=== PATIENT | male | born 1975 | race Two or more races ===

== ENCOUNTER 2017-08-20 10:53 | Inpatient (IN) | payer MEDICAID, OTHER ==
[~2017-08-20] VITALS: Ht 154.9 cm; Wt 97.0 kg
[2017-08-20 11:27] LABS: Basophils # (auto) 0 uL; Basophils % (auto) 0.5 % (0.0-2.0); Eosinophils # (auto) 0.2 uL; Eosinophils % (auto) 2.1 % (0.0-7.0); Hematocrit 37.5 % (41.0-53.0); Hemoglobin 12.9 g/dL (13.5-17.5); Lymphocytes # (auto) 1.1 uL; Lymphocytes % (auto) 10.1 % (10.0-50.0); Mean Corpuscular Hemoglobin 28.5 pg (28.0-32.0); Mean Corpuscular Hgb Conc. 34.4 g/dL (32.0-36.0); Mean Corpuscular Volume 82.8 fL (80.0-100.0); Monocytes # (auto) 0.5 uL; Monocytes % (auto) 4.9 % (0.0-12.0); Neutrophils # (auto) 8.9 uL; Neutrophils % (auto) 82.4 % (37.0-80.0); Nucleated Red Blood Cells % 0.1 %; Platelet Count (auto) 140 10^3/uL (140-450); Red Blood Cells 4.54 10^6/uL (4.5-5.90); Red Cell Distribution Width 17.9 % (11.8-14.3); White Blood Cell 10.8 10^3/uL (4.4-10.8)
[2017-08-20 11:53] LABS: Albumin 3.6 g/dL (3.4-5.0); BUN/Creatinine Ratio 17.1; Bilirubin, Total 1.7 mg/dL (0.2-1.0); Calcium 8.8 mg/dL (8.5-10.1); Magnesium 1.8 mg/dL (1.6-2.6); Potassium 3.5 mmol/L (3.5-5.1); Total Protein 7.4 g/dL (6.4-8.2)
[2017-08-20] MEDS ORDERED: ASPirin 81 mg TAB PO ONE (13:15)
[2017-08-20] MEDS ORDERED: NITROGLYCERIN 0.4 MG SL TAB SL ONE (13:15)
[2017-08-20] MEDS ORDERED: ENOXAPARIN SOD 100 MG/1 ML SYRINGE SC ONE ×2 (13:15→20:32)
[2017-08-20] MEDS ORDERED: NITROGLYCERIN 0.4 MG SL TAB SL PRN (13:45)
[2017-08-20] MEDS ORDERED: MORPHINE SULFATE 8mg/ml INJ SDV IV PRN ×3 (13:45)
[2017-08-20] MEDS ORDERED: DEXTROSE (50%) 50ML SYRG IV PRN (13:45)
[2017-08-20] MEDS ORDERED: LACTULOSE 20Gm/30ML SOLN PO PRN (13:45)
[2017-08-20 14:05] LABS: CRP High Sensitivity 0.29 mg/dL (< 0.3)
[2017-08-20] MEDS: SODIUM CHLORIDE 0.9% 1,000 ML IV SCH (14:09)
[2017-08-20 14:12] LABS: INR 1.05 (0.9-1.15); Partial Thromboplastin Time 25.1 sec (22.64-33.71); Prothrombin Time 11.5 sec (9.37-12.3)
[2017-08-20] MEDS: ACCU-CHEK COMFORT CURVE STRIP VI SCH ×2 (17:24→21:48)
[2017-08-20] MEDS: InsuLIN REG 1unit/0.01ml Soln (100units/ml) SC SCH ×2 (17:31→21:49)
[2017-08-20] MEDS: BUMETANIDE 1 MG TAB PO SCH (17:31)
[2017-08-20 17:40] VITALS: BP 114/73
[2017-08-20 20:00] VITALS: BP 93/65
[2017-08-20] MEDS: ENOXAPARIN SOD 80 MG/0.8ML SYRINGE SC SCH (21:47)
[2017-08-21] VITALS: BP 118/61
[2017-08-21] MEDS ORDERED: FAM20T PO (00:36)
[2017-08-21] MEDS ORDERED: COLCPOW2 PO (00:36)
[2017-08-21] MEDS ORDERED: IVAB1.7T PO (00:36)
[2017-08-21] MEDS ORDERED: SPIR25TA89 PO (00:36)
[2017-08-21] MEDS ORDERED: MET50T PO (00:36)
[2017-08-21] MEDS ORDERED: CLOP75TA41 PO (00:36)
[2017-08-21] MEDS ORDERED: ATOR1TAB PO (00:36)
[2017-08-21] MEDS ORDERED: ASPI81CH4 PO (00:36)
[2017-08-21] MEDS ORDERED: BUME1TAB26 PO (00:36)
[2017-08-21] MEDS ORDERED: METF-370 PO (00:36)
[2017-08-21] MEDS ORDERED: SACU1TAB PO (00:44)
[2017-08-21 04:00] VITALS: BP 119/72
[2017-08-21] MEDS: SODIUM CHLORIDE 0.9% 1,000 ML IV SCH (06:00)
[2017-08-21] MEDS ORDERED: BUMETANIDE 1 MG TAB ONE (06:02)
[2017-08-21] MEDS: BUMETANIDE 1 MG TAB PO SCH (06:08)
[2017-08-21] MEDS: ACCU-CHEK COMFORT CURVE STRIP VI SCH ×4 (06:09→21:50)
[2017-08-21] MEDS: InsuLIN REG 1unit/0.01ml Soln (100units/ml) SC SCH ×3 (06:22→17:00)
[2017-08-21 08:00] VITALS: BP 131/84
[2017-08-21] MEDS ORDERED: NITROGLYCERIN 0.2MG/HR TOPICAL PATCH TD SCH (10:00)
[2017-08-21] MEDS ORDERED: CLOPIDOGREL BISULFATE 75 MG TAB PO SCH (10:00)
[2017-08-21] MEDS: ENOXAPARIN SOD 80 MG/0.8ML SYRINGE SC SCH ×2 (10:14→21:48)
[2017-08-21] MEDS: COLCHICINE 0.6 MG TAB PO SCH (10:14)
[2017-08-21] MEDS: SPIRONOLACTONE 25 MG TAB PO SCH (10:15)
[2017-08-21] MEDS: ASPirin 81 mg TAB PO SCH (10:15)
[2017-08-21 11:10] LABS: Basophils # (auto) 0.1 uL; Basophils % (auto) 0.5 % (0.0-2.0); Eosinophils # (auto) 0.2 uL; Eosinophils % (auto) 2.2 % (0.0-7.0); Hematocrit 34.6 % (41.0-53.0); Hemoglobin 11.8 g/dL (13.5-17.5); Lymphocytes # (auto) 1.3 uL; Mean Corpuscular Hemoglobin 28.3 pg (28.0-32.0); Mean Corpuscular Volume 83.3 fL (80.0-100.0); Monocytes # (auto) 0.7 uL; Neutrophils # (auto) 9.3 uL; Neutrophils % (auto) 80.3 % (37.0-80.0); Platelet Count (auto) 132 10^3/uL (140-450); Red Blood Cells 4.16 10^6/uL (4.5-5.90); Red Cell Distribution Width 17.6 % (11.8-14.3); White Blood Cell 11.6 10^3/uL (4.4-10.8)
[2017-08-21 11:50] VITALS: BP 113/71
[2017-08-21 12:13] LABS: BUN/Creatinine Ratio 16.2
[2017-08-21 12:14] LABS: Albumin 3.4 g/dL (3.4-5.0); Bilirubin, Total 2.1 mg/dL (0.2-1.0); Calcium 8.4 mg/dL (8.5-10.1); Total Protein 7.1 g/dL (6.4-8.2)
[2017-08-21] MEDS ORDERED: POTASSIUM CHL 20 Meq TABLET PO ONE (14:45)
[2017-08-21] MEDS ORDERED: CARVEDILOL 3.125 MG TAB PO ONE (14:45)
[2017-08-21] MEDS ORDERED: ACETAMINOPHEN 325 MG TAB PO ONE (14:57)
[2017-08-21 15:49] VITALS: BP 119/54
[2017-08-21 19:55] VITALS: BP 109/52
[2017-08-21] MEDS: ATORVASTATIN 20 MG TAB PO SCH (21:49)
[2017-08-21] MEDS: CARVEDILOL 3.125 MG TAB PO SCH (21:50)
[2017-08-22 00:28] VITALS: BP 112/69
[2017-08-22] MEDS: InsuLIN REG 1unit/0.01ml Soln (100units/ml) SC SCH ×5 (00:30→21:26)
[2017-08-22 02:44] LABS: Urine Bacteria NONE SEEN /hpf (None Seen); Urine Blood Negative /uL (Negative); Urine Specific Gravity 1.019 (1.001-1.035); Urine WBC 1 /hpf (0 - 3)
[2017-08-22 03:01] LABS: Alcohol, Urine < 3.0 mg/dL (0-5); Amphetamine Screen, Urine NEGATIVE (NEGATIVE); Barbiturate Scree,Urine NEGATIVE (NEGATIVE); Benzodiazephine Screen, Urine NEGATIVE (NEGATIVE); Cannabinoid Screen, Urine NEGATIVE (NEGATIVE); Cocaine Screen, Urine NEGATIVE (NEGATIVE); Opiate Scree,Urine NEGATIVE (NEGATIVE); Phencyclidine Screen, Urine NEGATIVE (NEGATIVE)
[2017-08-22] MEDS: ACCU-CHEK COMFORT CURVE STRIP VI SCH ×4 (05:37→21:22)
[2017-08-22 06:09] LABS: Basophils # (auto) 0 uL; Basophils % (auto) 0.3 % (0.0-2.0); Eosinophils # (auto) 0.2 uL; Hematocrit 31.1 % (41.0-53.0); Hemoglobin 10.8 g/dL (13.5-17.5); Lymphocytes # (auto) 1.6 uL; Lymphocytes % (auto) 16.3 % (10.0-50.0); Mean Corpuscular Hemoglobin 29.3 pg (28.0-32.0); Mean Corpuscular Hgb Conc. 34.8 g/dL (32.0-36.0); Mean Corpuscular Volume 84.2 fL (80.0-100.0); Monocytes # (auto) 0.9 uL; Monocytes % (auto) 9.1 % (0.0-12.0); Neutrophils % (auto) 72.3 % (37.0-80.0); Platelet Count (auto) 128 10^3/uL (140-450); Red Blood Cells 3.69 10^6/uL (4.5-5.90); Red Cell Distribution Width 17.6 % (11.8-14.3); White Blood Cell 9.7 10^3/uL (4.4-10.8)
[2017-08-22 06:20] LABS: Albumin 3.1 g/dL (3.4-5.0); BUN/Creatinine Ratio 16.8; Bilirubin, Total 1.9 mg/dL (0.2-1.0); Calcium 8.8 mg/dL (8.5-10.1); Potassium 3.8 mmol/L (3.5-5.1); Total Protein 6.6 g/dL (6.4-8.2)
[2017-08-22 08:00] VITALS: BP_SYST 114; BP_SYST 138; BP_DIAS 60; BP_DIAS 80
[2017-08-22] MEDS: ACETAMINOPHEN 650 mg PER 20 mL UD PO PRN (08:07)
[2017-08-22] MEDS ORDERED: POTASSIUM CHL 20 Meq TABLET PO SCH (10:00)
[2017-08-22] MEDS: ASPirin 81 mg TAB PO SCH (10:20)
[2017-08-22] MEDS: SPIRONOLACTONE 25 MG TAB PO SCH (10:20)
[2017-08-22] MEDS: COLCHICINE 0.6 MG TAB PO SCH (10:20)
[2017-08-22] MEDS: CLOPIDOGREL BISULFATE 75 MG TAB PO SCH (10:21)
[2017-08-22] MEDS: ENOXAPARIN SOD 80 MG/0.8ML SYRINGE SC SCH (10:21)
[2017-08-22 11:50] VITALS: BP 112/56
[2017-08-22] MEDS: CARVEDILOL 3.125 MG TAB PO SCH ×2 (12:26→21:21)
[2017-08-22 15:46] VITALS: BP 114/60
[2017-08-22] MEDS: ATORVASTATIN 20 MG TAB PO SCH (21:21)
[2017-08-22 22:00] VITALS: BP 115/60
[2017-08-23 05:30] VITALS: BP 100/45
[2017-08-23] MEDS: ACCU-CHEK COMFORT CURVE STRIP VI SCH ×4 (06:11→22:00)
[2017-08-23] MEDS: InsuLIN REG 1unit/0.01ml Soln (100units/ml) SC SCH ×4 (06:13→22:00)
[2017-08-23 07:45] LABS: Potassium 3.9 mmol/L (3.5-5.1)
[2017-08-23 07:50] LABS: Albumin 2.9 g/dL (3.4-5.0); BUN/Creatinine Ratio 19.6; Calcium 8.6 mg/dL (8.5-10.1)
[2017-08-23 07:54] LABS: Bilirubin, Total 1.7 mg/dL (0.2-1.0); Total Protein 6.4 g/dL (6.4-8.2)
[2017-08-23] MEDS ORDERED: LIDOCAINE HCL 2 %PF INJ 10ML AMP IJ ONE ×2 (07:55→11:37)
[2017-08-23] MEDS ORDERED: IODIXANOL 320MG/ML 100ML BTL IV ONE (07:55)
[2017-08-23 08:35] LABS: Basophils # (auto) 0 uL; Basophils % (auto) 0.3 % (0.0-2.0); Eosinophils # (auto) 0.3 uL; Eosinophils % (auto) 2.2 % (0.0-7.0); Hematocrit 30.5 % (41.0-53.0); Hemoglobin 10.4 g/dL (13.5-17.5); Lymphocytes # (auto) 1.6 uL; Lymphocytes % (auto) 13.5 % (10.0-50.0); Mean Corpuscular Hemoglobin 28.9 pg (28.0-32.0); Monocytes % (auto) 8.5 % (0.0-12.0); Neutrophils # (auto) 8.7 uL; Neutrophils % (auto) 75.5 % (37.0-80.0); Platelet Count (auto) 124 10^3/uL (140-450); Red Blood Cells 3.59 10^6/uL (4.5-5.90); Red Cell Distribution Width 17.4 % (11.8-14.3); White Blood Cell 11.5 10^3/uL (4.4-10.8)
[2017-08-23 09:00] VITALS: BP 112/62
[2017-08-23 09:20] LABS: Hepatitis B Surface Antibody Negative
[2017-08-23 09:58] LABS: Hepatitis A Total Antibody Positive
[2017-08-23] MEDS: CARVEDILOL 3.125 MG TAB PO SCH ×2 (10:00→22:00)
[2017-08-23] MEDS: CLOPIDOGREL BISULFATE 75 MG TAB PO SCH (10:00)
[2017-08-23] MEDS ORDERED: HEPARIN SODIUM (PORCINE) 5000 UNITS/ML 1ML VIAL ONE (11:14)
[2017-08-23] MEDS ORDERED: fentaNYL CITRATE 100 MCG/2 ML VL ONE (11:15)
[2017-08-23] MEDS ORDERED: VERAPAMIL 2.5MG/ML INJ 2ML VIAL IV ONE (11:15)
[2017-08-23] MEDS ORDERED: MIDAZOLAM HCL 1MG/1ML-2 ML VIAL ONE (11:15)
[2017-08-23 14:33] LABS: Hepatitis B Core Total AB Negative; Hepatitis B Surface Antigen Negative (Negative); Hepatitis C Antibody Negative (Negative)
[2017-08-23] MEDS: SPIRONOLACTONE 25 MG TAB PO SCH (16:42)
[2017-08-23] MEDS: COLCHICINE 0.6 MG TAB PO SCH (16:42)
[2017-08-23] MEDS: ASPirin 81 mg TAB PO SCH (16:42)
[2017-08-23 17:03] VITALS: BP 106/32
[2017-08-23 21:30] VITALS: BP 121/64
[2017-08-23] MEDS: ATORVASTATIN 20 MG TAB PO SCH (22:00)
[2017-08-23] MEDS: ACETAMINOPHEN 650 mg PER 20 mL UD PO PRN (22:01)
[2017-08-24 04:55] VITALS: BP 110/56
[2017-08-24] MEDS: InsuLIN REG 1unit/0.01ml Soln (100units/ml) SC SCH ×2 (06:29→11:30)
[2017-08-24] MEDS: ACCU-CHEK COMFORT CURVE STRIP VI SCH ×2 (06:29→12:01)
[2017-08-24 06:30] LABS: Basophils # (auto) 0 uL; Basophils % (auto) 0.4 % (0.0-2.0); Eosinophils # (auto) 0.1 uL; Eosinophils % (auto) 1.6 % (0.0-7.0); Hematocrit 29.8 % (41.0-53.0); Hemoglobin 10.2 g/dL (13.5-17.5); Lymphocytes # (auto) 1.2 uL; Lymphocytes % (auto) 14.2 % (10.0-50.0); Mean Corpuscular Hemoglobin 29.6 pg (28.0-32.0); Mean Corpuscular Hgb Conc. 34.3 g/dL (32.0-36.0); Mean Corpuscular Volume 86.2 fL (80.0-100.0); Monocytes # (auto) 0.8 uL; Monocytes % (auto) 9.5 % (0.0-12.0); Neutrophils # (auto) 6.3 uL; Neutrophils % (auto) 74.3 % (37.0-80.0); Nucleated Red Blood Cells % 0.1 %; Platelet Count (auto) 134 10^3/uL (140-450); Red Blood Cells 3.46 10^6/uL (4.5-5.90); Red Cell Distribution Width 17.2 % (11.8-14.3); White Blood Cell 8.5 10^3/uL (4.4-10.8)
[2017-08-24 07:03] LABS: Albumin 2.6 g/dL (3.4-5.0); BUN/Creatinine Ratio 17.5; Calcium 8.3 mg/dL (8.5-10.1); Potassium 3.9 mmol/L (3.5-5.1)
[2017-08-24 07:09] LABS: Bilirubin, Total 1.5 mg/dL (0.2-1.0); Total Protein 6.3 g/dL (6.4-8.2)
[2017-08-24 08:44] VITALS: BP 103/48
[2017-08-24] MEDS: COLCHICINE 0.6 MG TAB PO SCH (09:12)
[2017-08-24] MEDS: ASPirin 81 mg TAB PO SCH (09:13)
[2017-08-24] MEDS: SPIRONOLACTONE 25 MG TAB PO SCH (09:13)
[2017-08-24] MEDS: CARVEDILOL 3.125 MG TAB PO SCH (09:13)
[2017-08-24 11:30] VITALS: BP 97/55
== END 2017-08-24 12:20 | disposition home or self-care (01) | DRG 190 ==
LOC: ER 10:53 → EDBD 10:53 → DOU IN ICU 10:54 → ER 17:56 → DOU IN ICU 17:57 → EAST 08-22 17:42 → TELE-EAST 08-22 23:15
PROVIDERS: ADMIT Internal Medicine; ATTEND Internal Medicine
PROC: 4A023N7 Measurement of Cardiac Sampling and Pressure, Left Heart, Percutaneous Approach (ICD-10-PCS; principal; 2017-08-23)
PROC: B2111ZZ Fluoroscopy of Multiple Coronary Arteries using Low Osmolar Contrast (ICD-10-PCS; 2017-08-23)
PROC: B2151ZZ Fluoroscopy of Left Heart using Low Osmolar Contrast (ICD-10-PCS; 2017-08-23)
DX: I21.4 Non-ST elevation (NSTEMI) myocardial infarction (principal); E43 Unspecified severe protein-calorie malnutrition; I50.43 Acute on chronic combined systolic (congestive) and diastolic (congestive) heart failure; E11.9 Type 2 diabetes mellitus without complications; K80.00 Calculus of gallbladder with acute cholecystitis without obstruction; Z68.41 Body mass index [BMI] 40.0-44.9, adult; D72.829 Elevated white blood cell count, unspecified; G89.4 Chronic pain syndrome; E66.9 Obesity, unspecified; I25.5 Ischemic cardiomyopathy; I11.0 Hypertensive heart disease with heart failure; I25.10 Atherosclerotic heart disease of native coronary artery without angina pectoris; I25.2 Old myocardial infarction; Z95.5 Presence of coronary angioplasty implant and graft; Z95.810 Presence of automatic (implantable) cardiac defibrillator; Z79.02 Long term (current) use of antithrombotics/antiplatelets; Z79.82 Long term (current) use of aspirin; Z87.891 Personal history of nicotine dependence; Z80.9 Family history of malignant neoplasm, unspecified; Z83.3 Family history of diabetes mellitus
CPT/HCPCS: 36415; 71046; 76705; 80053; 80307; 81001; 82150; 82550; 82962; 83036; 83605; 83690; 83735; 83880; 84443; 84484; 85025; 85610; 85652; 85730; 86141; 86704; 86706; 86708; 86803; 87081; 87340; 93005; 93306; 93458; 96372; 99152; 99153; 99291; J1815; J2250; J2270; Q9967

== ENCOUNTER 2022-03-13 16:53 | Inpatient (IN) | payer MEDICAID ==
[~2022-03-13] VITALS: Ht 165.1 cm; Wt 87.4 kg
[~2022-03-13 16:53] MED LIST: ASPI81CH74 PO; ATOR-47 PO; BUME1TAB26 PO; CLOP75TA70 PO; COLCPOW2 PO; FAMO20TA10 PO; IVAB1.7T PO; MET50T PO; METF-370 PO; SACU1TAB PO; SPIR25TA8 PO
[2022-03-13 19:17] LABS: Basophils # (auto) 0.1 10 ^3/uL (0-0.2); Basophils % (auto) 0.5 % (0.0-2.0); Eosinophils # (auto) 0.2 10 ^3/uL (0-0.8); Eosinophils % (auto) 1.2 % (0.0-7.0); Hematocrit 37.4 % (41.0-53.0); Hemoglobin 12.7 g/dL (13.5-17.5); Lymphocytes # (auto) 1.7 10 ^3/uL (0.4-5.4); Lymphocytes % (auto) 12.6 % (10.0-50.0); Mean Corpuscular Hemoglobin 27.9 pg (28.0-32.0); Mean Corpuscular Hgb Conc. 34.1 g/dL (32.0-36.0); Mean Corpuscular Volume 81.9 fL (80.0-100.0); Monocytes # (auto) 0.8 10 ^3/uL (0-1.3); Monocytes % (auto) 5.5 % (0.0-12.0); Neutrophils # (auto) 11.1 10 ^3/uL (1.6-8.6); Neutrophils % (auto) 80.2 % (37.0-80.0); Nucleated Red Blood Cells % 0.1 %; Red Blood Cells 4.56 10^6/uL (4.5-5.90); Red Cell Distribution Width 16.1 % (11.8-14.3); White Blood Cell 13.8 10^3/uL (4.4-10.8)
[2022-03-13 19:35] LABS: Albumin 3.2 g/dL (3.4-5.0); BUN/Creatinine Ratio 20.7; Calcium 8.4 mg/dL (8.5-10.1); Magnesium 1.4 mg/dL (1.6-2.6); Potassium 3.5 mmol/L (3.5-5.1)
[2022-03-13] MEDS ORDERED: MORPHINE SULFATE INJ 2 MG/ml SYRG IV PRN ×2 (21:00)
[2022-03-13] MEDS ORDERED: NITROGLYCERIN 0.4 MG SL TAB SL PRN (21:00)
[2022-03-13] MEDS ORDERED: ONDANSETRON HCL 4 MG/2 ML VIAL IV PRN (21:00)
[2022-03-14] MEDS ORDERED: NITROGLYCERIN 0.4 MG SL TAB SL PRN (03:45)
[2022-03-14] MEDS ORDERED: ONDANSETRON HCL 4 MG/2 ML VIAL IV PRN (03:45)
[2022-03-14] MEDS ORDERED: MORPHINE SULFATE INJ 2 MG/ml SYRG IV PRN ×2 (03:45)
[2022-03-14 12:29] LABS: Urine Bacteria FEW /hpf (None Seen); Urine Blood Negative /uL (Negative); Urine Hyaline Cast FEW /lpf (0 - 2); Urine Specific Gravity 1.013 (1.001-1.035); Urine WBC 1 /hpf (0 - 3)
[2022-03-14] MEDS: ENOXAPARIN SOD 100 MG/1 ML SYRINGE SC SCH ×2 (13:23→22:59)
[2022-03-14] MEDS: MAGNESIUM SULFATE 1GM/100ML 100 ML IV SCH ×2 (18:02→19:11)
[2022-03-14] MEDS: SODIUM CHLORIDE 0.9% 1,000 ML IV SCH (18:11)
[2022-03-14] MEDS ORDERED: METOPROLOL SUCCINATE XL 50 MG TAB PO SCH ×2 (21:00→22:00)
[2022-03-14] MEDS: ATORVASTATIN 20 MG TAB PO SCH (23:00)
[2022-03-14 23:17] VITALS: BP 109/76
[2022-03-14] MEDS: IVABRADINE 5 MG TAB PO SCH (23:51)
[2022-03-15] MEDS ORDERED: MAGNESIUM SULFATE 1GM/100ML 100 ML IV SCH
[2022-03-15 05:00] VITALS: BP 107/58
[2022-03-15] MEDS ORDERED: MORPHINE SULFATE INJ 2 MG/ml SYRG IV PRN (05:15)
[2022-03-15] MEDS: HYDROcodone-ACET 5/325MG TAB PO PRN ×2 (05:31→17:46)
[2022-03-15] MEDS: BUMETANIDE 1 MG TAB PO SCH ×2 (06:22→17:46)
[2022-03-15 06:41] LABS: Basophils # (auto) 0 10 ^3/uL (0-0.2); Basophils % (auto) 0.2 % (0.0-2.0); Eosinophils # (auto) 0.1 10 ^3/uL (0-0.8); Eosinophils % (auto) 0.9 % (0.0-7.0); Hematocrit 33.3 % (41.0-53.0); Hemoglobin 11.5 g/dL (13.5-17.5); Lymphocytes # (auto) 1.2 10 ^3/uL (0.4-5.4); Lymphocytes % (auto) 14.6 % (10.0-50.0); Mean Corpuscular Hemoglobin 28.5 pg (28.0-32.0); Mean Corpuscular Hgb Conc. 34.6 g/dL (32.0-36.0); Mean Corpuscular Volume 82.3 fL (80.0-100.0); Monocytes # (auto) 0.6 10 ^3/uL (0-1.3); Monocytes % (auto) 7.2 % (0.0-12.0); Neutrophils # (auto) 6.1 10 ^3/uL (1.6-8.6); Neutrophils % (auto) 77.1 % (37.0-80.0); Nucleated Red Blood Cells % 0.2 %; Red Blood Cells 4.04 10^6/uL (4.5-5.90); Red Cell Distribution Width 16.1 % (11.8-14.3); White Blood Cell 7.9 10^3/uL (4.4-10.8)
[2022-03-15 06:55] LABS: Albumin 2.6 g/dL (3.4-5.0); Calcium 8.8 mg/dL (8.5-10.1); Magnesium 2.4 mg/dL (1.6-2.6); Potassium 3.4 mmol/L (3.5-5.1)
[2022-03-15 06:58] LABS: BUN/Creatinine Ratio 21.9; Total Protein 6.8 g/dL (6.4-8.2)
[2022-03-15 09:00] VITALS: BP 99/55
[2022-03-15] MEDS: PANTOPRAZOLE 40 MG TAB PO SCH (10:13)
[2022-03-15] MEDS: ASPirin-EC 81 mg tab PO SCH (10:13)
[2022-03-15] MEDS: METOPROLOL SUCCINATE XL 50 MG TAB PO SCH ×2 (10:14→21:46)
[2022-03-15] MEDS: IVABRADINE 5 MG TAB PO SCH ×2 (10:14→21:45)
[2022-03-15] MEDS: SPIRONOLACTONE 25 MG TAB PO SCH (10:14)
[2022-03-15] MEDS: SODIUM CHLORIDE 0.9% 1,000 ML IV SCH (12:00)
[2022-03-15 13:00] VITALS: BP 98/61
[2022-03-15 16:51] VITALS: BP 99/48
[2022-03-15] MEDS: ATORVASTATIN 20 MG TAB PO SCH (21:45)
[2022-03-15] MEDS: ENOXAPARIN SOD 80 MG/0.8ML SYRINGE SC SCH (21:46)
[2022-03-15 22:00] VITALS: BP 106/62
[2022-03-16 05:00] VITALS: BP 105/60
[2022-03-16] MEDS: BUMETANIDE 1 MG TAB PO SCH ×2 (05:15→18:23)
[2022-03-16] MEDS: SODIUM CHLORIDE 0.9% 1,000 ML IV SCH (06:31)
[2022-03-16 06:34] LABS: Basophils # (auto) 0 10 ^3/uL (0-0.2); Basophils % (auto) 0.3 % (0.0-2.0); Eosinophils # (auto) 0 10 ^3/uL (0-0.8); Eosinophils % (auto) 0.6 % (0.0-7.0); Hematocrit 30.3 % (41.0-53.0); Hemoglobin 10.5 g/dL (13.5-17.5); Mean Corpuscular Hemoglobin 28.4 pg (28.0-32.0); Mean Corpuscular Hgb Conc. 34.5 g/dL (32.0-36.0); Mean Corpuscular Volume 82.5 fL (80.0-100.0); Monocytes # (auto) 0.6 10 ^3/uL (0-1.3); Monocytes % (auto) 8.3 % (0.0-12.0); Neutrophils % (auto) 77.8 % (37.0-80.0); Red Blood Cells 3.68 10^6/uL (4.5-5.90); Red Cell Distribution Width 16.2 % (11.8-14.3); White Blood Cell 7.7 10^3/uL (4.4-10.8)
[2022-03-16 07:09] LABS: Potassium 3.6 mmol/L (3.5-5.1)
[2022-03-16 07:17] LABS: BUN/Creatinine Ratio 14.3
[2022-03-16 08:00] VITALS: BP 103/60
[2022-03-16 08:30] VITALS: BP 103/60
[2022-03-16] MEDS: ASPirin-EC 81 mg tab PO SCH (09:59)
[2022-03-16] MEDS: IVABRADINE 5 MG TAB PO SCH ×2 (09:59→22:00)
[2022-03-16] MEDS: PANTOPRAZOLE 40 MG TAB PO SCH (09:59)
[2022-03-16] MEDS: SPIRONOLACTONE 25 MG TAB PO SCH (09:59)
[2022-03-16] MEDS: COLCHICINE 0.6 MG CAP PO SCH (09:59)
[2022-03-16] MEDS: METOPROLOL SUCCINATE XL 50 MG TAB PO SCH ×2 (10:00→22:01)
[2022-03-16] MEDS: ENOXAPARIN SOD 80 MG/0.8ML SYRINGE SC SCH ×2 (10:00→22:01)
[2022-03-16] MEDS: HYDROcodone-ACET 5/325MG TAB PO PRN ×2 (10:09)
[2022-03-16 13:00] VITALS: BP 104/59
[2022-03-16] MEDS ORDERED: predniSONE 20 MG TAB PO ONE (16:00)
[2022-03-16 16:59] VITALS: BP 119/66
[2022-03-16 22:00] VITALS: BP 113/66
[2022-03-16] MEDS: ATORVASTATIN 20 MG TAB PO SCH (22:00)
[2022-03-17] MEDS: SODIUM CHLORIDE 0.9% 1,000 ML IV SCH ×2 (02:25→20:45)
[2022-03-17 05:00] VITALS: BP 104/50
[2022-03-17] MEDS: BUMETANIDE 1 MG TAB PO SCH ×2 (05:24→17:59)
[2022-03-17 07:19] LABS: Basophils # (auto) 0 10 ^3/uL (0-0.2); Basophils % (auto) 0.2 % (0.0-2.0); Eosinophils # (auto) 0 10 ^3/uL (0-0.8); Hematocrit 31.6 % (41.0-53.0); Hemoglobin 10.9 g/dL (13.5-17.5); Lymphocytes # (auto) 0.9 10 ^3/uL (0.4-5.4); Lymphocytes % (auto) 11.1 % (10.0-50.0); Mean Corpuscular Hemoglobin 28.2 pg (28.0-32.0); Mean Corpuscular Hgb Conc. 34.4 g/dL (32.0-36.0); Monocytes # (auto) 0.6 10 ^3/uL (0-1.3); Monocytes % (auto) 7.6 % (0.0-12.0); Neutrophils # (auto) 6.4 10 ^3/uL (1.6-8.6); Neutrophils % (auto) 81.1 % (37.0-80.0); Red Blood Cells 3.85 10^6/uL (4.5-5.90); Red Cell Distribution Width 15.7 % (11.8-14.3); White Blood Cell 7.9 10^3/uL (4.4-10.8)
[2022-03-17 07:35] LABS: BUN/Creatinine Ratio 15.8; Calcium 8.4 mg/dL (8.5-10.1); Magnesium 1.9 mg/dL (1.6-2.6); Potassium 3.5 mmol/L (3.5-5.1); Uric Acid 9.3 mg/dL (3.5-7.2)
[2022-03-17 08:00] VITALS: BP 118/72
[2022-03-17] MEDS: METOPROLOL SUCCINATE XL 50 MG TAB PO SCH ×2 (09:50→21:06)
[2022-03-17] MEDS: COLCHICINE 0.6 MG CAP PO SCH (09:50)
[2022-03-17] MEDS: ASPirin-EC 81 mg tab PO SCH (09:50)
[2022-03-17] MEDS: SPIRONOLACTONE 25 MG TAB PO SCH (09:50)
[2022-03-17] MEDS: PANTOPRAZOLE 40 MG TAB PO SCH (09:50)
[2022-03-17] MEDS: predniSONE 20 MG TAB PO SCH (09:50)
[2022-03-17] MEDS: IVABRADINE 5 MG TAB PO SCH ×2 (09:50→21:05)
[2022-03-17] MEDS: ENOXAPARIN SOD 80 MG/0.8ML SYRINGE SC SCH ×2 (09:51→21:07)
[2022-03-17 12:00] VITALS: BP 109/58
[2022-03-17] MEDS ORDERED: DEXTROSE (50%) 50ML SYRG IV PRN (12:30)
[2022-03-17 16:00] VITALS: BP 113/64
[2022-03-17] MEDS: ACCU-CHEK COMFORT CURVE STRIP VI SCH ×2 (17:59→21:06)
[2022-03-17] MEDS: InsuLIN REG 1unit/0.01ml Soln (100units/ml) SC SCH ×2 (18:00→21:08)
[2022-03-17] MEDS: ATORVASTATIN 20 MG TAB PO SCH (21:05)
[2022-03-17 23:34] VITALS: BP 128/53
[2022-03-18] VITALS (10 sets, daily range): BP systolic 93–125; BP diastolic 50–80
[2022-03-18] MEDS: BUMETANIDE 1 MG TAB PO SCH ×2 (06:15→19:20)
[2022-03-18] MEDS: ACCU-CHEK COMFORT CURVE STRIP VI SCH ×4 (06:15→22:10)
[2022-03-18] MEDS: InsuLIN REG 1unit/0.01ml Soln (100units/ml) SC SCH ×4 (06:15→22:10)
[2022-03-18 07:22] LABS: Cholesterol 144 mg/dL (< 200); HDL Cholesterol 32 mg/dL (40-59); LDL Cholesterol 97 mg/dL (< 100); Triglycerides 118 mg/dL (< 150)
[2022-03-18 08:58] LABS: Albumin 2.4 g/dL (3.4-5.0); BUN/Creatinine Ratio 16.4; Calcium 8.2 mg/dL (8.5-10.1); Potassium 3.5 mmol/L (3.5-5.1)
[2022-03-18 09:19] LABS: Bilirubin, Total 0.6 mg/dL (0.2-1.0); Total Protein 6.2 g/dL (6.4-8.2)
[2022-03-18] MEDS: COLCHICINE 0.6 MG CAP PO SCH (09:23)
[2022-03-18] MEDS: PANTOPRAZOLE 40 MG TAB PO SCH (09:26)
[2022-03-18] MEDS: SPIRONOLACTONE 25 MG TAB PO SCH (09:26)
[2022-03-18] MEDS: predniSONE 20 MG TAB PO SCH (09:26)
[2022-03-18] MEDS: METOPROLOL SUCCINATE XL 50 MG TAB PO SCH ×2 (09:50→22:00)
[2022-03-18 09:52] LABS: INR 1.15 (0.9-1.15); Partial Thromboplastin Time 33.3 sec (24.6-33.4)
[2022-03-18] MEDS: ASPirin-EC 81 mg tab PO SCH (09:52)
[2022-03-18] MEDS: ENOXAPARIN SOD 80 MG/0.8ML SYRINGE SC SCH (09:52)
[2022-03-18] MEDS: IVABRADINE 5 MG TAB PO SCH ×2 (10:00→22:00)
[2022-03-18] MEDS ORDERED: IOHEXOL 350 MG/ML 100ML IJ ONE ×2 (15:14→16:34)
[2022-03-18] MEDS ORDERED: LIDOCAINE 2%HCL (LOCAL ANESTH.) INJ 20ML MDV ONE (15:14)
[2022-03-18] MEDS ORDERED: VERAPAMIL 2.5MG/ML INJ 2ML VIAL IV ONE (15:26)
[2022-03-18] MEDS ORDERED: fentaNYL CITRATE 100 MCG/2 ML VL ONE (15:26)
[2022-03-18] MEDS ORDERED: ANGIOMAX 250 MG VIAL IV ONE (15:26)
[2022-03-18] MEDS ORDERED: HEPARIN SODIUM (PORCINE) 5000 UNITS/ML 1ML VIAL ONE (15:26)
[2022-03-18] MEDS ORDERED: SODIUM CHL 0.9% 50 ML ONE (15:27)
[2022-03-18] MEDS ORDERED: MIDAZOLAM HCL 2MG/2ML 2ml VIAL (1mg/ml) ONE ×2 (15:27→16:15)
[2022-03-18] MEDS ORDERED: ASPirin 325 MG TAB ONE (16:44)
[2022-03-18] MEDS ORDERED: CLOPIDOGREL 300 MG TAB ONE (16:44)
[2022-03-18] MEDS: SODIUM CHLORIDE 0.9% 1,000 ML IV SCH (18:45)
[2022-03-18] MEDS: ATORVASTATIN 20 MG TAB PO SCH (22:00)
[2022-03-19 05:00] VITALS: BP 125/80
[2022-03-19] MEDS: BUMETANIDE 1 MG TAB PO SCH ×2 (06:11→18:22)
[2022-03-19] MEDS: ACCU-CHEK COMFORT CURVE STRIP VI SCH ×3 (06:37→17:00)
[2022-03-19] MEDS: InsuLIN REG 1unit/0.01ml Soln (100units/ml) SC SCH ×3 (06:37→17:00)
[2022-03-19 06:52] LABS: Basophils # (auto) 0 10 ^3/uL (0-0.2); Basophils % (auto) 0.6 % (0.0-2.0); Eosinophils # (auto) 0 10 ^3/uL (0-0.8); Eosinophils % (auto) 0.5 % (0.0-7.0); Hematocrit 31.2 % (41.0-53.0); Hemoglobin 10.8 g/dL (13.5-17.5); Lymphocytes # (auto) 1.3 10 ^3/uL (0.4-5.4); Lymphocytes % (auto) 24.6 % (10.0-50.0); Mean Corpuscular Hemoglobin 27.8 pg (28.0-32.0); Mean Corpuscular Hgb Conc. 34.5 g/dL (32.0-36.0); Mean Corpuscular Volume 80.8 fL (80.0-100.0); Monocytes # (auto) 0.5 10 ^3/uL (0-1.3); Monocytes % (auto) 8.3 % (0.0-12.0); Neutrophils # (auto) 3.6 10 ^3/uL (1.6-8.6); Nucleated Red Blood Cells % 0.1 %; Red Blood Cells 3.87 10^6/uL (4.5-5.90); Red Cell Distribution Width 15.5 % (11.8-14.3); White Blood Cell 5.5 10^3/uL (4.4-10.8)
[2022-03-19 07:13] LABS: Potassium 3.1 mmol/L (3.5-5.1)
[2022-03-19 07:23] LABS: Albumin 2.4 g/dL (3.4-5.0); BUN/Creatinine Ratio 19.3; Bilirubin, Total 0.6 mg/dL (0.2-1.0); Calcium 8.1 mg/dL (8.5-10.1); Total Protein 6.2 g/dL (6.4-8.2)
[2022-03-19 08:00] VITALS: BP 118/72
[2022-03-19 09:00] VITALS: BP 134/84
[2022-03-19] MEDS: METOPROLOL SUCCINATE XL 50 MG TAB PO SCH (10:00)
[2022-03-19] MEDS ORDERED: CLOPIDOGREL BISULFATE 75 MG TAB PO SCH ×2 (10:00)
[2022-03-19] MEDS: ASPirin-EC 81 mg tab PO SCH (10:05)
[2022-03-19] MEDS: IVABRADINE 5 MG TAB PO SCH (10:06)
[2022-03-19] MEDS: predniSONE 20 MG TAB PO SCH (10:06)
[2022-03-19] MEDS: SPIRONOLACTONE 25 MG TAB PO SCH (10:07)
[2022-03-19] MEDS: COLCHICINE 0.6 MG CAP PO SCH (10:07)
[2022-03-19] MEDS: PANTOPRAZOLE 40 MG TAB PO SCH (10:08)
[2022-03-19 13:00] VITALS: BP 125/74
[2022-03-19] MEDS: SODIUM CHLORIDE 0.9% 1,000 ML IV SCH (15:05)
[2022-03-19] MEDS ORDERED: METO-6 PO (15:13)
[2022-03-19] MEDS ORDERED: PRED20TA2 PO (15:13)
[2022-03-19] MEDS ORDERED: CLOP75TA70 PO (15:13)
[2022-03-19] MEDS ORDERED: ASPI-543 PO (15:13)
[2022-03-19] MEDS ORDERED: PANT40T PO (15:13)
[2022-03-19] MEDS ORDERED: ATOR-47 PO (15:13)
[2022-03-19] MEDS ORDERED: COLC0.6T56 PO (15:13)
[2022-03-19 16:30] VITALS: BP 125/74
[2022-03-19 17:00] VITALS: BP 126/71
== END 2022-03-19 20:20 | disposition home health service (06) | DRG 175 ==
LOC: ER 16:53 → EDBD 16:53 → TELE 20:56 → TELE-WESTW 03-14 21:34
PROVIDERS: ADMIT Orthopaedic Surgery; ATTEND Internal Medicine
PROC: 4B02XSZ Measurement of Cardiac Pacemaker, External Approach (ICD-10-PCS; 2022-03-13)
PROC: B2111ZZ Fluoroscopy of Multiple Coronary Arteries using Low Osmolar Contrast (ICD-10-PCS; principal; 2022-03-18)
PROC: 027135Z Dilation of Coronary Artery, Two Arteries with Two Drug-eluting Intraluminal Devices, Percutaneous Approach (ICD-10-PCS; 2022-03-18)
PROC: 4A023N7 Measurement of Cardiac Sampling and Pressure, Left Heart, Percutaneous Approach (ICD-10-PCS; 2022-03-18)
DX: T82.855A Stenosis of coronary artery stent, initial encounter (principal); N17.0 Acute kidney failure with tubular necrosis; I50.22 Chronic systolic (congestive) heart failure; I13.0 Hypertensive heart and chronic kidney disease with heart failure and stage 1 through stage 4 chronic kidney disease, or unspecified chronic kidney disease; D64.9 Anemia, unspecified; E11.22 Type 2 diabetes mellitus with diabetic chronic kidney disease; E78.00 Pure hypercholesterolemia, unspecified; I25.10 Atherosclerotic heart disease of native coronary artery without angina pectoris; E78.5 Hyperlipidemia, unspecified; I25.5 Ischemic cardiomyopathy; N18.9 Chronic kidney disease, unspecified; Z20.822 Contact with and (suspected) exposure to COVID-19; M10.9 Gout, unspecified; Y83.1 Surgical operation with implant of artificial internal device as the cause of abnormal reaction of the patient, or of later complication, without mention of misadventure at the time of the procedure; Y92.89 Other specified places as the place of occurrence of the external cause; Z79.02 Long term (current) use of antithrombotics/antiplatelets; Z91.199 Patient's noncompliance with other medical treatment and regimen due to unspecified reason; Z95.810 Presence of automatic (implantable) cardiac defibrillator; Z79.82 Long term (current) use of aspirin
CPT/HCPCS: 36415; 71045; 80048; 80053; 80061; 81001; 82962; 83036; 83735; 83880; 84484; 84550; 85025; 85610; 85730; 86850; 86900; 86901; 87426; 92928; 93005; 93306; 93458; 96365; 96366; 96372; 97116; 97163; 97530; 99152; 99153; C1874; G0378; J1815; J2250